=== PATIENT | female | born 1940 | race Caucasian/White ===

== ENCOUNTER 2018-07-15 05:12 | Day surgery (SDC) | payer MEDICARE, MEDICAID ==
[2018-07-14 13:01] LABS: BASOPHILS % (AUTO) 0.5 % (0-1); EOSINOPHILS # (AUTO) 0.1 X10'3 (0-0.9); EOSINOPHILS % (AUTO) 0.6 % (0-6); HEMATOCRIT 31.3 % (35.0-45.0); HEMOGLOBIN 9.6 g/dl (12.0-16.0); LYMPHOCYTES % (AUTO) 22.2 % (21-51); MEAN CORPUSCULAR HEMOGLOBIN 23.6 PG (27.0-31.0); MEAN CORPUSCULAR HGB CONC 30.5 g/dL (33.0-36.5); MEAN CORPUSCULAR VOLUME 77.4 FL (78-98); MEAN PLATELET VOLUME 8.4 FL (7.4-10.4); MONOCYTES # (AUTO) 0.6 X10'3 (0-0.9); MONOCYTES % (AUTO) 6.6 % (2-12); NEUTROPHILS # (AUTO) 6.2 X10'3 (1.8-7.7); NEUTROPHILS % (AUTO) 70.1 % (42-75); PLATELET COUNT 274 X10'3 (140-440); RED BLOOD COUNT 4.05 X10'6 (4.20-5.60); RED CELL DISTRIBUTION WIDTH 17.8 % (11.5-14.5); WHITE BLOOD COUNT 8.8 X10'3 (4.5-11.0)
[2018-07-14 13:07] LABS: ALBUMIN 3.4 G/DL (3.4-5.0); ANION GAP 9 (8-16); BLOOD UREA NITROGEN 20 MG/DL (7-18); BUN/CREATININE RATIO 20.6 (6.6-38.0); CALCIUM 9.7 MG/DL (8.5-10.1); CHLORIDE 105 MMOL/L (99-107); CREATININE 0.97 MG/DL (0.40-0.90); GLUCOSE 107 MG/DL (70-104); SODIUM 138 MMOL/L (135-145); eGFR 56 ML/MIN
[2018-07-14 13:29] LABS: ANISOCYTOSIS 1+; LARGE PLATELETS FEW; MICROCYTOSIS 1+; PLATELET ESTIMATE NORMAL
[2018-07-14 13:30] LABS: HYPOCHROMASIA 1+
[2018-07-14 13:46] LABS: PARTIAL THROMBOPLASTIN TIME 25 SECONDS (22-32)
[~2018-07-15] VITALS: Ht 162.6 cm; Wt 83.0 kg
[2018-07-15] VITALS (12 sets, daily range): BP systolic 112–165; BP diastolic 51–87
[~2018-07-15 05:12] MED LIST: AMLO5TAB16 PO; ASPI-1264 PO; ATOR20TA66 PO; METO25TA6 PO; ONDA4TAB6 PO; TRAM50TA2 PO
[2018-07-15] MEDS ORDERED: ACET-1008 PO (05:41)
[2018-07-15] MEDS ORDERED: FERR325T28 PO (05:41)
[2018-07-15] MEDS ORDERED: MULT-1085 PO (05:41)
[2018-07-15] MEDS ORDERED: ASPI-611 PO (05:41)
[2018-07-15] MEDS ORDERED: diphenhydrAMINE 25mg capsule PO PRN (05:45)
[2018-07-15] MEDS ORDERED: LORazepam 0.5 MG tablet PO PRN (05:45)
[2018-07-15] MEDS ORDERED: normal saline 1,000 ML IV SCH (05:45)
[2018-07-15] MEDS ORDERED: fentaNYL/PF 50MCG/1 ML 2ML syringe ONE (06:01)
[2018-07-15] MEDS ORDERED: LIDOcaine 1% (10mg/ml)w/preservative injection 20ml MDV ONE (06:01)
[2018-07-15] MEDS ORDERED: iohexol 350MG/ML 100ml bottle IV ONE (06:01)
[2018-07-15] MEDS ORDERED: midazolam 2 mg/2 ml injection ONE (06:01)
[2018-07-15] MEDS ORDERED: OXAZEpam 15mg capsule PO PRN (07:55)
[2018-07-15] MEDS ORDERED: ondansetron/PF 4mg/2ml inj IV PRN (07:55)
[2018-07-15] MEDS ORDERED: proCHLORperazine 10 MG/2 ml inj IV PRN (07:55)
== END 2018-07-15 09:55 | disposition home or self-care (01) ==
LOC: SSTAY O 05:12
PROVIDERS: ATTEND Internal Medicine Interventional Cardiology
DX: I25.10 Atherosclerotic heart disease of native coronary artery without angina pectoris (principal); I08.3 Combined rheumatic disorders of mitral, aortic and tricuspid valves; E78.5 Hyperlipidemia, unspecified; I10 Essential (primary) hypertension; Z88.6 Allergy status to analgesic agent; Z79.82 Long term (current) use of aspirin; Z79.899 Other long term (current) drug therapy
CPT/HCPCS: 36415; 80048; 85025; 85610; 85730; 93005; 93454; 99152; 99153; A6257; J1644; J2001; J2250; J3010; J7030; Q0163; Q9967; A4620; C1769